=== PATIENT | female | born 1980 | race Caucasian/White ===

== ENCOUNTER 2016-09-01 06:34 | Emergency (ER) | payer OTHER ==
[~2016-09-01] VITALS: Ht 149.9 cm; Wt 84.8 kg
[2016-09-01 07:35] VITALS: BP 109/59
== END 2016-09-01 07:46 | disposition home or self-care (01) ==
LOC: ED 06:34
DX: J20.9 Acute bronchitis, unspecified (principal)
CPT/HCPCS: J7613; J7644